=== PATIENT | female | born 1975 | race Hispanic/Latino ===

== ENCOUNTER 2017-06-11 12:22 | Emergency (ER) | payer MEDICARE ==
[2017-06-11] MEDS ORDERED: KETOROLAC TROMETHAMINE 30MG/ML ONE (12:50)
== END 2017-06-11 13:06 | disposition home or self-care (01) ==
LOC: EDH 12:22
DX: L02.211 Cutaneous abscess of abdominal wall (principal); I10 Essential (primary) hypertension; E11.9 Type 2 diabetes mellitus without complications; E07.9 Disorder of thyroid, unspecified; Z90.710 Acquired absence of both cervix and uterus
CPT/HCPCS: 96372; 99283; J1885